=== PATIENT | male | born 1980 | race Caucasian/White ===

== ENCOUNTER 2017-05-18 17:53 | Emergency (ER) | payer OTHER ==
[~2017-05-18] VITALS: Ht 180.3 cm; Wt 90.2 kg
[2017-05-18 17:55] VITALS: TEMP 36.4; Ht 180.3 cm; Wt 90.2 kg
[2017-05-18] MEDS ORDERED: CEPHALEXIN MONOHYDRATE 250 MG CAP PO ONE (18:15)
--- NOTE | 2017-05-18 18:40 | DIAGNOSTIC IMAGING REPORT ---
RIGHT THUMB 3 VIEWS HISTORY: right thumb laceration COMPARISON: None. FINDINGS: There is no fracture or dislocation. Small laceration at the tip of the thumb. Overlying bandage material is noted. No metallic radiopaque foreign bodies. IMPRESSION: Soft tissue laceration at the tip of the thumb. No fractures. Electronically signed by: Jacob Daniel M.D. 05/18/2017 6:38 PM Dictated Date/Time: 05/18/2017 6:37 PM
[2017-05-18] MEDS ORDERED: CEPH500C PO (19:37)
[2017-05-18 19:43] VITALS: BP 132/87; PULSE 74; O2SAT 98
--- NOTE | 2017-05-18 23:24 | EMERGENCY ROOM VISIT NOTE ---
History First contact with patient: 18:00 Chief Complaint: LACERATION/CUT (SUT/DERMABOND) Stated Complaint: RT THUMB LAC History of Present Illness The patient is a 36 year old male who presents to the Emergency Room with complaints of laceration to his right thumb that occurred roughly 10 or more hours ago. The patient was using a serrated knife at work, and cut into the end of his right thumb. He wrapped the wound, and went to his primary care physician today. The wound was cleansed and dressed. He was referred to the ER for further evaluation. The patient believes he is up-to-date on his tetanus. He rates his current discomfort a 4/10. Review of Systems More than 10 systems were reviewed and otherwise negative with the exception of history of present illness. Past Medical/Surgical History No chronic medical disease Social History Smoking Status: Current Every Day Smoker Occupation Status: employed Current/Historical Medications Scheduled Cephalexin Monohydrate (Keflex), 500 MG PO TID Physical Exam Vital Signs Date Time Temp Pulse Resp B/P (MAP) Pulse Ox O2 Delivery O2 Flow Rate FiO2 05/18/17 19:43 74 20 132/87 98 05/18/17 17:55 36.4 91 17 122/85 95 Room Air Physical Exam VITALS: Vitals are noted on the nurse's note and reviewed by myself. Vital signs stable. GENERAL: Well-developed, well-nourished, white male, who is in no acute distress and resting comfortably. Patient is cooperative with the examination. HEART: Regular rate and rhythm without murmurs gallops or rubs. LUNGS: Clear to auscultation bilaterally without wheezes, rales or rhonchi. No retractions or accessory muscle use. MUSCULOSKELETAL: There is a macerated avulsion type laceration to the distal end of the right thumb measuring roughly 1.5 cm in total dimension. The patient is able to flex and extend the digit. There is no significant bleeding. Medical Decision & Procedures ER Provider Diagnostic Interpretation: RIGHT THUMB 3 VIEWS HISTORY: right thumb laceration COMPARISON: None. FINDINGS: There is no fracture or dislocation. Small laceration at the tip of the thumb. Overlying bandage material is noted. No metallic radiopaque foreign bodies. IMPRESSION: Soft tissue laceration at the tip of the thumb. No fractures. Medications Administered Medications (Trade) Dose Ordered Sig/Kallie Route Start Time Stop Time Status Last Admin Dose Admin Cephalexin Monohydrate (Keflex Cap) 500 mg NOW ONCE PO 05/18/17 18:15 05/18/17 18:16 DC 05/18/17 18:24 500 MG ED Course Physical exam and history were performed. Nursing notes, EMR, and Medication List were personally reviewed. Patient appears to have a macerated avulsion type laceration to the distal end of his right thumb. He was given Keflex here in the department. X-ray was performed and does not show evidence of bony abnormality. Overall the patient appears well for discharge home. The laceration does not tend itself well to formal suture repair as the available tissue is macerated and additional tissue is missing. There is also the delay in treatment, which causes concern for infection and healing. The wound was cleansed and dressed with a bacitracin dressing. He will be given a continuation course of Keflex and asked to follow with his primary care physician this week for further care and management. The chart was completed utilizing [employer] Speech Voice Recognition Software. Grammatical errors, random word insertions, pronoun errors, and incomplete sentences are an occasional consequence of this system due to software limitations, ambient noise, and hardware issues. Any formal questions or concerns about the content, text, or information contained within the body of this dictation should be directly addressed to the provider for clarification. . Medical Decision Differential diagnosis includes, but is not limited to: Laceration, abrasion, foreign body, avulsion, fracture, and others Impression Primary Impression: Laceration of right thumb Departure Information Dispostion Home / Self-Care Condition GOOD Prescriptions Cephalexin Monohydrate (Keflex) 500 Mg Cap 500 MG PO TID for 10 Days, #30 CAP Prov: Khris Shrestha PA-C 05/18/17 Forms HOME CARE DOCUMENTATION FORM, IMPORTANT VISIT INFORMATION Patient Instructions My [facility] Additional Instructions You were seen and evaluated today on an emergency basis only. This is not a substitute for, or an effort to provide, complete comprehensive medical care. It is not possible to recognize and treat all injuries or illnesses in a single emergency department visit. For this reason it is recommended that you followup with your primary care physician later this week for recheck of your condition. Applying antibiotic ointment like bacitracin twice daily for the next 7 days. Cephalexin(Keflex) 500mg: Take one pill 3 times daily for 10 days to prevent skin infection. All antibiotics can cause diarrhea. If this occurs and you feel worse or it does not resolve in 1-2 days follow up with your doctor or return to the Emergency Department as this could be signs of serious underlying problems. Any medication can cause an allergic reaction, stop the pills immediately and return to the ER for rash, hives, breathing difficulties, or swelling. You are welcome to return to the emergency department anytime with new, worsening, or concerning symptoms.
== END 2017-05-18 19:45 | disposition home or self-care (01) ==
LOC: C.EDB 17:54 → C.EDD 19:45
DX: S61.011A Laceration without foreign body of right thumb without damage to nail, initial encounter (principal); W26.0XXA Contact with knife, initial encounter; Y92.89 Other specified places as the place of occurrence of the external cause; Y99.0 Civilian activity done for income or pay; F17.210 Nicotine dependence, cigarettes, uncomplicated